=== PATIENT | female | born 1955 | race American Indian/Alaskan Native ===

== ENCOUNTER 2016-06-27 08:33 | Emergency (ER) | payer MEDICARE ==
[2016-06-27 08:45] VITALS: BP 140/96
[2016-06-27] MEDS ORDERED: TESSALON PERLES PO ONE (09:12)
[2016-06-27] MEDS ORDERED: DUONEB 0.5 MG-3 MG/3 ML SOLN IH ONE (09:12)
--- NOTE | 2016-06-27 09:20 | Emergency Department Report ---
ED General Adult HPI - General Chief complaint: Back Pain/Injury Stated complaint: Cough /BACK PAIN Time Seen by Provider: 06/27/16 09:00 Source: patient Mode of arrival: Ambulatory Limitations: No Limitations - History of Present Illness Initial comments: PT c/o c/c/c x 4-5 days, gradually worsening, with fevers and chills PT states she does not have asthma but she has heard herself wheezing. PT also states she is out of her oxycodone that her MD has her on for chronic low back pain and sciatica. PT states she needs her medication for her back pain MD Complaint: cough/ back pain -: Gradual, days(s) (4-5 days) Location: chest Severity scale (0 -10): 10 Quality: aching, constant Consistency: constant Improves with: medication (oxycodone ) Associated Symptoms: cough, fever/chills. denies: nausea/vomiting Treatments Prior to Arrival: Aspirin (0300 - helped break fever ) - Related Data Previous Rx's Medication Instructions Recorded Last Taken Type amLODIPine [Norvasc] 10 mg PO DAILY #30 tablet 11/10/14 Unknown Rx Cyclobenzaprine [Flexeril 10 MG 10 mg PO TID PRN #30 tablet 03/11/15 Unknown Rx TAB] Allergies Allergy/AdvReac Type Severity Reaction Status Date / Time cortisone [Cortisone] Allergy Seizure Verified 05/26/15 12:41 ED Review of Systems ROS: Stated complaint: SOB/BACK PAIN Other details as noted in HPI Comment: All other systems reviewed and negative Constitutional: chills, fever, malaise ENT: congestion Respiratory: cough, wheezing, other (pt states she hears rattling in her chest ) Cardiovascular: denies: palpitations, syncope Gastrointestinal: denies: vomiting Musculoskeletal: back pain ED Past Medical Hx - Past Medical History Previous Medical History?: Yes Hx Hypertension: Yes Hx Asthma: No Additional medical history: chronic BACK pain - Surgical History Past Surgical History?: Yes Additional Surgical History: tubal ligation - Family History Family history: lung disease (ASthma ) - Social History Smoking Status: Never Smoker Substance Use Type: Alcohol - Medications Home Medications: Home Medications Medication Instructions Recorded Confirmed Last Taken Type amLODIPine [Norvasc] 10 mg PO DAILY #30 tablet 11/10/14 Unknown Rx Cyclobenzaprine [Flexeril 10 MG 10 mg PO TID PRN #30 tablet 03/11/15 Unknown Rx TAB] ED Physical Exam - General Limitations: No Limitations General appearance: alert, in no apparent distress - Head Head exam: Present: atraumatic, normocephalic - Eye Eye exam: Present: normal appearance. Absent: conjunctival injection - ENT ENT exam: Present: mucous membranes moist, TM's normal bilaterally, normal external ear exam - Expanded ENT Exam Expanded Mouth exam: Present: normal external inspection. Absent: drooling, trismus Throat exam: Positive: other (clear post nasal drainage ). Negative: tonsillar erythema, tonsillomegaly, tonsillar exudate, R peritonsillar mass, L peritonsillar mass - Neck Neck exam: Present: normal inspection, full ROM. Absent: tenderness, lymphadenopathy - Respiratory Respiratory exam: Present: normal lung sounds bilaterally, other (dry cough during exam ). Absent: respiratory distress, wheezes, stridor, chest wall tenderness - Cardiovascular Cardiovascular Exam: Present: regular rate, normal rhythm, normal heart sounds - GI/Abdominal GI/Abdominal exam: Present: soft. Absent: tenderness - Extremities Exam Extremities exam: Present: normal inspection, full ROM - Back Exam Back exam: Present: normal inspection, full ROM, tenderness, paraspinal tenderness (juan lumbar spine ). Absent: CVA tenderness (R), CVA tenderness (L) , vertebral tenderness - Neurological Exam Neurological exam: Present: alert, oriented X3, normal gait - Psychiatric Psychiatric exam: Present: normal affect, normal mood - Skin Skin exam: Present: warm, dry, intact ED Course Vital Signs 06/27/16 06/27/16 06/27/16 08:43 09:30 09:40 Temperature 98.5 F Pulse Rate 99 H Pulse Rate [ 97 H 98 H Anterior Bilateral Throughout] Respiratory 18 Rate Respiratory 18 18 Rate [Anterior Bilateral Throughout] Blood Pressure 140/96 O2 Sat by Pulse 100 Oximetry - Reevaluation(s) Reevaluation #1: 06/27/16 09:25 PT aware of plan of care. No questions at this time. Reevaluation #2: 06/27/16 10:21 PT aware of XR results. PT states she will call her doctor tomorrow to see about oxycodone refill. PT states as of now, her next appointment is next month. PT states she still has Flexeril and Norvasc at home. PT states her cough decreased sp neb. - Pulse Oximetry Interpretation Digit-Finger Initial Pulse Oximetry Readin Actions Taken: none ED Medical Decision Making - Radiology Data Radiology results: report reviewed CXR- NAP - Differential Diagnosis chronic pain, bronchitis, pna Critical Care Time: No Critical care attestation.: If time is entered above; I have spent that time in minutes in the direct care of this critically ill patient, excluding procedure time. ED Disposition Clinical Impression: Viral URI with cough, Acute exacerbation of chronic low back pain Disposition: DISCHARGED TO HOME OR SELFCARE Is pt being admited?: No Does the pt Need Aspirin: No Condition: Stable Instructions: Chronic Back Pain (ED), Viral Syndrome (ED), Cold Symptoms (ED) Additional Instructions: Call your PCP in the morning No driving or ETOH with Tylenol #3 Time of Disposition: 10:25
--- NOTE | 2016-06-27 09:56 | XRay Report ---
ROUTINE CHEST, TWO VIEWS: HISTORY: Cough, fever. The trachea, heart, mediastinal contour, lung weiner and bony thorax are unremarkable. IMPRESSION: Unremarkable chest x-ray. No change since 11/09/14.
== END 2016-06-27 10:40 | disposition home or self-care (01) ==
LOC: ED 08:33
DX: J06.9 Acute upper respiratory infection, unspecified (principal); M54.5 Low back pain; G89.29 Other chronic pain; I10 Essential (primary) hypertension; Z98.51 Tubal ligation status
CPT/HCPCS: 71020; 94640

== ENCOUNTER 2016-12-10 17:35 | Emergency (ER) | payer MEDICARE ==
[2016-12-10] MEDS ORDERED: TYLENOL PO ONE (20:33)
[2016-12-10] MEDS ORDERED: MOTRIN PO ONE (20:34)
--- NOTE | 2016-12-10 21:47 | Emergency Department Report ---
ED General Adult HPI - General Chief complaint: Extremity Injury, Lower Stated complaint: LEFT LEG AND ANKLE Time Seen by Provider: 12/10/16 20:32 Source: patient Mode of arrival: Ambulatory Limitations: No Limitations - History of Present Illness Initial comments: Patient is a 61-year-old female who has a past medical history of hypertension and diabetes who presents with left ankle pain and swelling. She states that her symptoms have been going on for the last 3 days. Her pain as a 4 out of 10 as located in her ankle. Only occurs when she walks resting makes it better. It doesn't radiate anywhere and is an achy type of pain. She also noticed her ankle swells after she walks. When she props her ankle up with a pillow the swelling in her ankle goes down. Patient denies having any shortness of breath , any chest pain, calf swelling or having any fever. Severity scale (0 -10): 6 - Related Data Previous Rx's Medication Instructions Recorded Last Taken Type amLODIPine [Norvasc] 10 mg PO DAILY #30 tablet 11/10/14 Unknown Rx Cyclobenzaprine [Flexeril 10 MG 10 mg PO TID PRN #30 tablet 03/11/15 Unknown Rx TAB] Acetaminophen/Codeine [Tylenol #3] 1 tab PO Q6H PRN #12 tab 06/27/16 Unknown Rx Albuterol Sulfate [Ventolin HFA] 2 puff IH Q4H PRN #1 hfa.aer.ad 06/27/16 Unknown Rx Benzonatate [Tessalon Perles] 100 mg PO Q8HR PRN #12 capsule 06/27/16 Unknown Rx Ibuprofen [Motrin] 600 mg PO Q8H PRN #15 tablet 06/27/16 Unknown Rx guaiFENesin/DEXTROMETHORPHAN 1 each PO BID PRN #14 tbmp.12hr 06/27/16 Unknown Rx [Mucinex Dm ER 1,200-60 mg Tab] Allergies Allergy/AdvReac Type Severity Reaction Status Date / Time cortisone [Cortisone] Allergy Seizure Verified 12/10/16 17:40 ED Review of Systems ROS: Stated complaint: LEFT LEG AND ANKLE Other details as noted in HPI Constitutional: denies: chills, fever Eyes: denies: eye pain, eye discharge, vision change ENT: denies: ear pain, throat pain Respiratory: denies: cough, shortness of breath, wheezing Cardiovascular: denies: chest pain, palpitations Endocrine: no symptoms reported Gastrointestinal: denies: abdominal pain, nausea, diarrhea Genitourinary: denies: urgency, dysuria, discharge Musculoskeletal: as per HPI, joint swelling. denies: back pain, arthralgia Skin: denies: rash, lesions Neurological: denies: headache, weakness, paresthesias Psychiatric: denies: anxiety, depression Hematological/Lymphatic: denies: easy bleeding, easy bruising ED Past Medical Hx - Past Medical History Hx Hypertension: Yes Hx Arthritis: Yes Hx Asthma: No Additional medical history: chronic BACK pain - Surgical History Additional Surgical History: tubal ligation - Social History Smoking Status: Never Smoker Substance Use Type: None - Medications Home Medications: Home Medications Medication Instructions Recorded Confirmed Last Taken Type amLODIPine [Norvasc] 10 mg PO DAILY #30 tablet 11/10/14 Unknown Rx Cyclobenzaprine [Flexeril 10 MG 10 mg PO TID PRN #30 tablet 03/11/15 Unknown Rx TAB] Acetaminophen/Codeine [Tylenol #3] 1 tab PO Q6H PRN #12 tab 06/27/16 Unknown Rx Albuterol Sulfate [Ventolin HFA] 2 puff IH Q4H PRN #1 hfa.aer.ad 06/27/16 Unknown Rx Benzonatate [Tessalon Perles] 100 mg PO Q8HR PRN #12 capsule 06/27/16 Unknown Rx Ibuprofen [Motrin] 600 mg PO Q8H PRN #15 tablet 06/27/16 Unknown Rx guaiFENesin/DEXTROMETHORPHAN 1 each PO BID PRN #14 tbmp.12hr 06/27/16 Unknown Rx [Mucinex Dm ER 1,200-60 mg Tab] ED Physical Exam - General Limitations: No Limitations General appearance: alert, in no apparent distress - Head Head exam: Present: atraumatic, normocephalic - Eye Eye exam: Present: normal appearance - ENT ENT exam: Present: mucous membranes moist - Neck Neck exam: Present: normal inspection - Respiratory Respiratory exam: Present: normal lung sounds bilaterally. Absent: respiratory distress - Cardiovascular Cardiovascular Exam: Present: regular rate, normal rhythm. Absent: systolic murmur, diastolic murmur, rubs, gallop - GI/Abdominal GI/Abdominal exam: Present: soft, normal bowel sounds - Extremities Exam Extremities exam: Present: other (slight lateral ankle swelling tenderness +2 pedal pulses. Cap refill patient is neurovascularly intact). Absent: tenderness - Back Exam Back exam: Present: normal inspection - Neurological Exam Neurological exam: Present: alert, oriented X3 - Psychiatric Psychiatric exam: Present: normal affect, normal mood - Skin Skin exam: Present: warm, dry, intact, normal color. Absent: rash ED Course Vital Signs 12/10/16 12/10/16 12/10/16 17:40 20:51 22:35 Temperature 98.2 F 97.7 F Pulse Rate 91 H 80 Respiratory 18 18 16 Rate Blood Pressure 131/73 Blood Pressure 129/81 [Left] O2 Sat by Pulse 94 99 Oximetry ED Medical Decision Making - Radiology Data Radiology results: report reviewed, image reviewed Ankle x-ray: Shows moderate soft tissue swelling and plantar calcaneal spurring. - Medical Decision Making Chief medical diagnosis: Dependent edema Differential medical diagnosis: Ankle fracture, ankle sprain I will get an ankle x-ray and I will give patient oral analgesic pain medication. Patient states that her pain is better. X-ray shows moderate soft tissue swelling. Given patient's history of swelling going down when she props up her foot at night. It is highly unlikely that the infectious nature. Patient has no calf swelling or calf tenderness and it is highly unlikely that she has any SVT or DVT. Also patient home with follow-up instructions for compression stockings patient agrees with plan and return precautions were given to patient. Additional verbal discharge instructions were given. Critical care attestation.: If time is entered above; I have spent that time in minutes in the direct care of this critically ill patient, excluding procedure time. ED Disposition Clinical Impression: Dependent edema Left ankle pain Qualifiers: Chronicity: acute Qualified Code(s): M25.572 - Pain in left ankle and joints of left foot Disposition: DC-01 TO HOME OR SELFCARE Is pt being admited?: No Does the pt Need Aspirin: No Condition: Stable Instructions: Leg Edema (ED) Referrals: RHONDA VITALE DO [Primary Care Provider] - 3-5 Days
[2016-12-10 22:36] VITALS: BP 129/81
--- NOTE | 2016-12-10 22:41 | XRay Report ---
FINAL REPORT PROCEDURE: XR ANKLE 3+V LT TECHNIQUE: Three views left ankle HISTORY: left ankle pain COMPARISON: No prior studies are available for comparison. FINDINGS: Moderate soft tissue swelling. Plantar calcaneal spurring. No acute fracture seen at this time IMPRESSION: No acute fracture seen at this time
== END 2016-12-10 22:37 | disposition home or self-care (01) ==
LOC: ED 17:35
DX: R60.9 Edema, unspecified (principal); M25.572 Pain in left ankle and joints of left foot; I10 Essential (primary) hypertension

== ENCOUNTER 2020-04-28 16:19 | Emergency (ER) | payer MEDICARE ==
[2020-04-28 16:52] VITALS: BP 149/74
--- NOTE | 2020-04-28 16:53 | Emergency Department Report ---
ED Upper Extremity Inj HPI - General Chief Complaint: Extremity Injury, Upper Stated Complaint: PAIN RIGHT HAND Source: patient Mode of arrival: Ambulatory Limitations: No Limitations - History of Present Illness Initial Comments: Patient is a 64-year-old -[place]amese female with a history of chronic osteoarthritis, hypertension, obesity and chronic low back pain who presents to the ED with complaint of acute onset persistent right elbow and forearm pain for the last 2 weeks after heavy physical activity when exercising. Patient states that the pain was initially mild but in the last it started getting worse. Patient states that in the antecubital area of the right forearm and elbow the pain is worse with palpation and that there is a swollen mass in the area. Michael robert states that in the morning the area was more swollen with severe pain and warmth and that the pain is worse with any active range of motion especially extension of the right elbow and forearm. Patient also states that the pain radiates to the right upper arm especially with extension of the right arm. Patient denies fall, traumatic injury, chest pain, shortness of breath, neck pain, dizziness, heavy lifting, headache, numbness and tingling or weakness of right arm or back pain. MD Complaint: Injury to:: right, elbow, forearm -: Sudden, week(s) (2) Other Extremity Injury: Elbow: Right (Antecubital area pain) Handedness: right Place: home Severity scale (0 -10): 7 Improves With: rest Worsens With: movement of extremity Context: injury (hyperextension and movement) Associated Symptoms: denies other symptoms. denies: weakness, numbness, neck pain, suspects foreign body, nausea/vomiting, heard/felt popping sensat - Related Data Previous Rx's Medication Instructions Recorded Last Taken Type amLODIPine 10 mg PO DAILY #30 tablet 11/10/14 Unknown Rx Cyclobenzaprine [Flexeril 10 MG 10 mg PO TID PRN #30 tablet 03/11/15 Unknown Rx TAB] Acetaminophen/Codeine [Tylenol #3] 1 tab PO Q6H PRN #12 tab 06/27/16 Unknown Rx Albuterol Sulfate [Ventolin HFA] 2 puff IH Q4H PRN #1 hfa.aer.ad 06/27/16 Unknown Rx Benzonatate [Tessalon Perles] 100 mg PO Q8HR PRN #12 capsule 06/27/16 Unknown Rx Ibuprofen [Motrin] 600 mg PO Q8H PRN #15 tablet 06/27/16 Unknown Rx guaiFENesin/DEXTROMETHORPHAN 1 each PO BID PRN #14 tbmp.12hr 06/27/16 Unknown Rx [Mucinex Dm ER 1,200-60 mg Tab] Baclofen 20 mg PO Q12H PRN #24 tablet 04/28/20 Unknown Rx Naproxen 500 mg PO Q12H PRN #30 tablet 04/28/20 Unknown Rx Allergies Allergy/AdvReac Type Severity Reaction Status Date / Time cortisone [Cortisone] Allergy Seizure Verified 12/10/16 17:40 ED Review of Systems ROS: Stated complaint: PAIN RIGHT HAND Other details as noted in HPI Constitutional: denies: chills, fever Eyes: denies: eye pain, eye discharge, vision change ENT: denies: ear pain, throat pain Respiratory: denies: cough, shortness of breath, wheezing Cardiovascular: denies: chest pain, palpitations Endocrine: no symptoms reported Gastrointestinal: denies: abdominal pain, nausea, diarrhea Genitourinary: denies: urgency, dysuria, discharge Musculoskeletal: arthralgia (right elbow and forearm pain). denies: back pain, joint swelling Skin: denies: rash, lesions Neurological: denies: headache, weakness, paresthesias Psychiatric: denies: anxiety, depression Hematological/Lymphatic: denies: easy bleeding, easy bruising ED Past Medical Hx - Past Medical History Previous Medical History?: Yes Hx Hypertension: Yes Hx Arthritis: Yes Hx Asthma: No Additional medical history: chronic BACK pain - Surgical History Past Surgical History?: Yes Additional Surgical History: tubal ligation - Social History Smoking Status: Never Smoker Substance Use Type: None - Medications Home Medications: Home Medications Medication Instructions Recorded Confirmed Last Taken Type amLODIPine 10 mg PO DAILY #30 tablet 11/10/14 Unknown Rx Cyclobenzaprine [Flexeril 10 MG 10 mg PO TID PRN #30 tablet 03/11/15 Unknown Rx TAB] Acetaminophen/Codeine [Tylenol #3] 1 tab PO Q6H PRN #12 tab 06/27/16 Unknown Rx Albuterol Sulfate [Ventolin HFA] 2 puff IH Q4H PRN #1 hfa.aer.ad 06/27/16 Unknown Rx Benzonatate [Tessalon Perles] 100 mg PO Q8HR PRN #12 capsule 06/27/16 Unknown Rx Ibuprofen [Motrin] 600 mg PO Q8H PRN #15 tablet 06/27/16 Unknown Rx guaiFENesin/DEXTROMETHORPHAN 1 each PO BID PRN #14 tbmp.12hr 06/27/16 Unknown Rx [Mucinex Dm ER 1,200-60 mg Tab] Baclofen 20 mg PO Q12H PRN #24 tablet 04/28/20 Unknown Rx Naproxen 500 mg PO Q12H PRN #30 tablet 04/28/20 Unknown Rx ED Physical Exam - General Limitations: No Limitations General appearance: alert, in no apparent distress - Head Head exam: Present: atraumatic, normocephalic, normal inspection - Eye Eye exam: Present: normal appearance, PERRL, EOMI Pupils: Present: normal accommodation - ENT ENT exam: Present: normal exam, normal orophraynx, mucous membranes moist, TM's normal bilaterally, normal external ear exam - Neck Neck exam: Present: normal inspection, full ROM - Respiratory Respiratory exam: Present: normal lung sounds bilaterally. Absent: respiratory distress, wheezes, rales, rhonchi, chest wall tenderness, accessory muscle use, decreased breath sounds - Cardiovascular Cardiovascular Exam: Present: regular rate, normal rhythm, normal heart sounds. Absent: systolic murmur, diastolic murmur, rubs, gallop - GI/Abdominal GI/Abdominal exam: Present: soft, normal bowel sounds. Absent: distended, tenderness, guarding, rebound, hyperactive bowel sounds, hypoactive bowel sounds, organomegaly, mass, bruit - Extremities Exam Extremities exam: Present: normal inspection, full ROM, tenderness (Palpable right elbow tenderness, worse on the antecubital area), normal capillary refill. Absent: pedal edema, joint swelling, calf tenderness - Back Exam Back exam: Present: normal inspection, full ROM. Absent: tenderness, CVA tenderness (R), muscle spasm - Neurological Exam Neurological exam: Present: alert, oriented X3, CN II-XII intact, normal gait, reflexes normal - Psychiatric Psychiatric exam: Present: normal affect, normal mood - Skin Skin exam: Present: warm, dry, intact, normal color. Absent: rash ED Course Vital Signs 04/28/20 16:41 Temperature 98.8 F Pulse Rate 61 Respiratory 20 Rate Blood Pressure 149/74 O2 Sat by Pulse 99 Oximetry ED Medical Decision Making - EKG Data Rate: bradycardia - Radiology Data Findings [facility] [address] [place] [address] Vascular Lab Report Signed Patient: CHILO AMARO MR#: [id number] : 1955 Acct:[id number] Age/Sex: 64 / F ADM Date: 04/28/20 Loc: ED Attending Dr: Ordering Physician: MICHAEL ROSE Date of Service: 04/28/20 Procedure(s): VL venous duplex UE RT Accession Number(s): [id number] cc: MICHAEL ROSE DUPLEX DOPPLER UPPER EXTREMITY VENOUS, RIGHT INDICATION / CLINICAL INFORMATION: Right upper arm pain. TECHNIQUE: Duplex doppler imaging was performed through the veins of the right upper extremity using venous compression and other maneuvers. COMPARISON: None available. FINDINGS: RIGHT INTERNAL JUGULAR VEIN: Negative. RIGHT SUBCLAVIAN VEIN: Negative. RIGHT AXILLARY VEIN: Negative. RIGHT BRACHIAL VEIN: Negative. RIGHT FOREARM VEINS: Negative. RIGHT BASILIC VEIN (SUPERFICIAL): Negative. ADDITIONAL FINDINGS: None. IMPRESSION: 1. No sonographic evidence for DVT. Signer Name: Brendan Bajwa MD Signed: 04/28/2020 5:46 PM Workstation Name: [id number] Transcribed By: ARLINE Dictated By: Brendan Bajwa MD Electronically Authenticated By: Brendan Bajwa MD Signed Date/Time: 04/28/201745 DD/ 45 TD/TT: - Medical Decision Making This is a 64-year-old -[place]inamese female with a history of chronic o steoarthritis, hypertension, obesity and chronic low back pain who presents to the ED with complaint of acute onset persistent right elbow and forearm pain for the last 2 weeks after heavy physical activity when exercising. Patient states that the pain was initially mild but in the last it started getting worse. Patient states that in the antecubital area of the right forearm and elbow the pain is worse with palpation and that there is a swollen mass in the area. Patient states that in the morning the area was more swollen with severe pain and warmth and that the pain is worse with any active range of motion especially extension of the right elbow and forearm. Patient also states that the pain radiates to the right upper arm especially with extension of the right arm. In the ED, patient is alert and oriented x3 and is not in distress, vital signs are stable. Patient however appears to be in pain especially on physical exam. Patient was therefore treated for pain in the ED and the right arm Doppler ultrasound was performed which was negative for any sonographic evidence of DVT. On reevaluation, patient's pain is well controlled with medications. Patient was discharged home on pain medication prescriptions and was advised to follow- up with her primary care physician in 7 to 10 days for reevaluation. Patient was advised return to the ED immediately if her symptoms get worse. Patient verbalized understanding of the discharge plans and the post discharge care as well as return precautions. - Differential Diagnosis Muscle strain; Tendonitis; Osteoarthritis; Muscle spasm; DVT Critical care attestation.: If time is entered above; I have spent that time in minutes in the direct care of this critically ill patient, excluding procedure time. ED Disposition Clinical Impression: Right elbow tendinitis Osteoarthritis of right elbow Qualifiers: Osteoarthritis type: primary Qualified Code(s): M19.021 - Primary osteoarthritis, right elbow Disposition: DC-01 TO HOME OR SELFCARE Is pt being admited?: No Does the pt Need Aspirin: No Condition: Stable Instructions: Tennis Elbow, [id number], Preventing Osteoarthritis, Adult, Arthritis, [id number], Tendinitis, [id number] Additional Instructions: The Doppler ultrasound of your right arm showed showed no evidence of blood clot or DVT. Take medication with food, drink plenty of fluids and follow-up with your primary care physician in 5 to 7 days for reevaluation. Return to the ED immediately if symptoms get worse. Prescriptions: Baclofen 20 mg PO Q12H PRN #24 tablet PRN Reason: Muscle strain Naproxen 500 mg PO Q12H PRN #30 tablet PRN Reason: Pain , Severe (7-10) Referrals: [facility] [Provider Group] - 3-5 Days Time of Disposition: 16:57 Print Language: GAMBIAN
--- NOTE | 2020-04-28 17:51 | Vascular Lab Report ---
DUPLEX DOPPLER UPPER EXTREMITY VENOUS, RIGHT INDICATION / CLINICAL INFORMATION: Right upper arm pain. TECHNIQUE: Duplex doppler imaging was performed through the veins of the right upper extremity using venous comp ression and other maneuvers. COMPARISON: None available. FINDINGS: RIGHT INTERNAL JUGULAR VEIN: Negative. RIGHT SUBCLAVIAN VEIN: Negative. RIGHT AXILLARY VEIN: Negative. RIGHT BRACHIAL VEIN: Negative. RIGHT FOREARM VEINS: Negative. RIGHT BASILIC VEIN (SUPERFICIAL): Negative. ADDITIONAL FINDINGS: None. IMPRESSION: 1. No sonographic evidence for DVT. Signer Name: Brendan Bajwa MD Signed: 04/28/2020 5:46 PM Workstation Name: [id number]
== END 2020-04-28 18:49 | disposition home or self-care (01) ==
LOC: ED 16:19
DX: M19.021 Primary osteoarthritis, right elbow (principal); M77.8 Other enthesopathies, not elsewhere classified; I10 Essential (primary) hypertension; M19.91 Primary osteoarthritis, unspecified site; Z98.51 Tubal ligation status; Z79.1 Long term (current) use of non-steroidal anti-inflammatories (NSAID); Z79.899 Other long term (current) drug therapy; Z88.8 Allergy status to other drugs, medicaments and biological substances

== ENCOUNTER 2020-07-26 08:51 | Emergency (ER) | payer MEDICARE ==
--- NOTE | 2020-07-26 09:11 | Event Note ---
ED Screening Note Date of service: 07/26/20 Time: 09:08 ED Screening Note: Zuleyma 64-year-old female presents to the ED with right-sided neck chest shoulder pain radiating down her hands x3 days Past medical history positive for hypertension Tenderness to palpation of the right sided neck, chest This initial assessment/diagnostic orders/clinical plan/treatment(s) is/are subject to change based on patients health status, clinical progression and re- assessment by fellow clinical providers in the ED. Further treatment and workup at subsequent clinical providers discretion. Patient/guardian urged not to elope from the ED as their condition may be serious if not clinically assessed and man aged. Initial orders include: Labs. Chest x-ray, EKG
--- NOTE | 2020-07-26 09:42 | XRay Report ---
CHEST 2 VIEWS INDICATION / CLINICAL INFORMATION: Chest pain. COMPARISON: 06/27/2016 FINDINGS: SUPPORT DEVICES: None. HEART / MEDIASTINUM: No significant abnormality. LUNGS / PLEURA: No significant pulmonary or pleural abnormality. No pneumothorax. ADDITIONAL FINDINGS: No significant additional findings. IMPRESSION: 1. No acute findings. Signer Name: Brendan Bajwa MD Signed: 07/26/2020 9:37 AM Workstation Name: [id number]
[2020-07-26 10:04] LABS: Basophils # (Auto) 0.1 K/mm3 (0.0-0.1); Basophils % (Auto) 0.6 % (0.0-1.8); Eosinophils # (Auto) 0.1 K/mm3 (0.0-0.4); Eosinophils % (Auto) 1.2 % (0.0-4.3); Lymphocytes # (Auto) 2.9 K/mm3 (1.2-5.4); Lymphocytes % (Auto) 29.6 % (13.4-35.0); Mean Corpuscular HGB Conc 30 % (30-34); Mean Corpuscular Volume 75 fl (79-97); Monocytes # (Auto) 0.5 K/mm3 (0.0-0.8); Monocytes % (Auto) 4.9 % (0.0-7.3); Platelet Count 323 K/mm3 (140-440); Red Blood Count 5.38 M/mm3 (3.65-5.03); Red Cell Distribution Width 14.6 % (13.2-15.2)
[2020-07-26 10:11] LABS: Hemoglobin 12.3 gm/dl (10.1-14.3)
[2020-07-26 10:12] LABS: Hematocrit 40.6 % (30.3-42.9)
[2020-07-26 10:27] LABS: BUN/Creatinine Ratio 21; Blood Urea Nitrogen 17 mg/dL (7-17); Calcium 9.1 mg/dL (8.4-10.2); Hemolysis Index 7
[2020-07-26] MEDS ORDERED: CYCLOBENZAPRINE 10 MG TAB PO ONE (12:17)
[2020-07-26] MEDS ORDERED: KETOROLAC 30 MG/1 ML INJ IM ONE (12:17)
--- NOTE | 2020-07-26 12:21 | Emergency Department Report ---
ED Chest Pain HPI - General Chief Complaint: Chest Pain Stated Complaint: CHEST PAIN Time Seen by Provider: 07/26/20 12:11 Source: patient Mode of arrival: Ambulatory Limitations: No Limitations - History of Present Illness Initial Comments: This is a 64-year-old female presents to the emergency department with a complaint of a squeezing and cramping pain going down her right arm and up into the shoulder and neck. Sometimes she also feels like it is radiating to or from the right side of her chest. No known aggravating or alleviating factors. How ever, the pain seems to be either more intense at night, or has kept her from getting sleep over the past 2 nights. She has a past medical history of hypertension and sciatica. She says she has been compliant with her medications but otherwise has not taken anything for her symptoms prior to presentation today. No recent travel or sick contacts at home. She denies any skin color change, swelling, rash, lesions, localized weakness, fever, shortness of breath. - Related Data Previous Rx's Medication Instructions Recorded Last Taken Type amLODIPine 10 mg PO DAILY #30 tablet 11/10/14 Unknown Rx Acetaminophen/Codeine [Tylenol #3] 1 tab PO Q6H PRN #12 tab 06/27/16 Unknown Rx Albuterol Sulfate [Ventolin HFA] 2 puff IH Q4H PRN #1 hfa.aer.ad 06/27/16 Unknown Rx Benzonatate [Tessalon Perles] 100 mg PO Q8HR PRN #12 capsule 06/27/16 Unknown Rx guaiFENesin/DEXTROMETHORPHAN 1 each PO BID PRN #14 tbmp.12hr 06/27/16 Unknown Rx [Mucinex Dm ER 1,200-60 mg Tab] Baclofen 20 mg PO Q12H PRN #24 tablet 04/28/20 Unknown Rx Naproxen 500 mg PO Q12H PRN #30 tablet 04/28/20 Unknown Rx Cyclobenzaprine [Flexeril 10 MG 10 mg PO TID PRN #12 tablet 07/26/20 Unknown Rx TAB] Ibuprofen [Motrin 600 MG tab] 600 mg PO Q8H PRN #20 tablet 07/26/20 Unknown Rx Allergies Allergy/AdvReac Type Severity Reaction Status Date / Time cortisone [Cortisone] Allergy Seizure Verified 09/22/17 17:40 Heart Score - HEART Score History: Slightly suspicious EKG: Non-specific Age: 45-65 Risk factors: 1-2 risk factors Troponin: < normal limit HEART Score: 3 - EKG Read Time Time EKG Completed: 08:59 EKG Read Time: 09:04 - Critical Actions Critical Actions: 0-3 pts:0.9-1.7%risk of adverse cardiac event.Candidate for discharge ED Review of Systems ROS: Stated complaint: CHEST PAIN Other details as noted in HPI Comment: All other systems reviewed and negative Constitutional: denies: chills, fever Eyes: denies: eye pain, vision change ENT: denies: ear pain, throat pain Respiratory: denies: cough, shortness of breath Cardiovascular: chest pain. denies: palpitations, edema Gastrointestinal: denies: abdominal pain, vomiting Genitourinary: denies: dysuria, discharge Musculoskeletal: arthralgia, myalgia. denies: joint swelling Skin: denies: rash, lesions Neurological: denies: headache, numbness, paresthesias ED Past Medical Hx - Past Medical History Previous Medical History?: Yes Hx Hypertension: Yes Hx Arthritis: Yes Hx Asthma: No Additional medical history: chronic BACK pain - Surgical History Past Surgical History?: Yes Additional Surgical History: tubal ligation - Social History Smoking Status: Never Smoker Substance Use Type: None - Medications Home Medications: Home Medications Medication Instructions Recorded Confirmed Last Taken Type amLODIPine 10 mg PO DAILY #30 tablet 11/10/14 Unknown Rx Acetaminophen/Codeine [Tylenol #3] 1 tab PO Q6H PRN #12 tab 06/27/16 Unknown Rx Albuterol Sulfate [Ventolin HFA] 2 puff IH Q4H PRN #1 hfa.aer.ad 06/27/16 Unknown Rx Benzonatate [Tessalon Perles] 100 mg PO Q8HR PRN #12 capsule 06/27/16 Unknown Rx guaiFENesin/DEXTROMETHORPHAN 1 each PO BID PRN #14 tbmp.12hr 06/27/16 Unknown Rx [Mucinex Dm ER 1,200-60 mg Tab] Baclofen 20 mg PO Q12H PRN #24 tablet 04/28/20 Unknown Rx Naproxen 500 mg PO Q12H PRN #30 tablet 04/28/20 Unknown Rx Cyclobenzaprine [Flexeril 10 MG 10 mg PO TID PRN #12 tablet 07/26/20 Unknown Rx TAB] Ibuprofen [Motrin 600 MG tab] 600 mg PO Q8H PRN #20 tablet 07/26/20 Unknown Rx ED Physical Exam - General Limitations: No Limitations - Other Other exam information: GENERAL: The patient is well-developed well-nourished. HENT: Normocephalic. Atraumatic. Patient has moist mucous membranes. EYES: Extraocular motions are intact. NECK: Supple. Trachea is midline. CHEST/LUNGS: Clear to auscultation. There is no respiratory distress noted. HEART/CARDIOVASCULAR: Regular. There is no tachycardia. There is no murmur. ABDOMEN: Abdomen is soft, nontender. Patient has normal bowel sounds. There is no abdominal distention. SKIN: Skin is warm and dry. NEURO: The patient is awake, alert, and oriented. The patient is cooperative. The patient has no focal neurologic deficits. Normal speech. MUSCULOSKELETAL: There is some reproducible tenderness to palpation along the right upper extremity. No obvious deformity. No restriction to range of motion. Radial pulse +2/4 and capillary refill less than 2 seconds to the affected right upper extremity. Supervisor Cartography strength 5 out of 5. ED Course Vital Signs 07/26/20 07/26/20 07/26/20 08:57 12:30 13:00 Temperature 98.5 F Pulse Rate 87 Respiratory 16 Rate Blood Pressure 196/94 171/78 171/76 O2 Sat by Pulse 100 98 97 Oximetry 07/26/20 07/26/20 13:30 14:00 Temperature Pulse Rate Respiratory Rate Blood Pressure 152/68 175/74 O2 Sat by Pulse 98 99 Oximetry MIKE score - Mike Score Age > 65: (0) No Aspirin use within the Past 7 Days: (0) No 3 or more CAD Risk Factors: (0) No 2 or more Angina events in past 24 hrs: (0) No Known CAD with more than 50% Stenosis: (0) No Elevated Cardiac Markers: (0) No ST Deviation Greater than 0.5mm: (0) No MIKE Score: 0 ED Medical Decision Making - Lab Data Result diagrams: 07/26/20 09:29 07/26/20 09:29 Lab Results 07/26/20 07/26/20 07/26/20 Range/Units 09:29 09:29 09:29 WBC 9.8 (4.5-11.0) K/mm3 RBC 5.38 H (3.65-5.03) M/mm3 Hgb 12.3 (10.1-14.3) gm/dl Hct 40.6 (30.3-42.9) % MCV 75 L (79-97) fl MCH 23 L (28-32) pg MCHC 30 (30-34) % RDW 14.6 (13.2-15.2) % Plt Count 323 (140-440) K/mm3 Lymph % (Auto) 29.6 (13.4-35.0) % [place] % (Auto) 4.9 (0.0-7.3) % Eos % (Auto) 1.2 (0.0-4.3) % Baso % (Auto) 0.6 (0.0-1.8) % Lymph # (Auto) 2.9 (1.2-5.4) K/mm3 [place] # (Auto) 0.5 (0.0-0.8) K/mm3 Eos # (Auto) 0.1 (0.0-0.4) K/mm3 Baso # (Auto) 0.1 (0.0-0.1) K/mm3 Seg Neutrophils % 63.7 (40.0-70.0) % Seg Neutrophils # 6.3 (1.8-7.7) K/mm3 Sodium 142 (137-145) mmol/L Potassium 4.2 (3.6-5.0) mmol/L Chloride 102.6 (98-107) mmol/L Carbon Dioxide 26 (22-30) mmol/L Anion Gap 18 mmol/L BUN 17 (7-17) mg/dL Creatinine 0.8 (0.6-1.2) mg/dL Estimated GFR > 60 ml/min BUN/Creatinine Ratio 21 % Glucose 94 (65-100) mg/dL Calcium 9.1 (8.4-10.2) mg/dL Magnesium 1.80 (1.7-2.3) mg/dL Troponin T < 0.010 (0.00-0.029) ng/mL - EKG Data -: EKG Interpreted by [facility] EKG shows normal: sinus rhythm, axis, intervals, QRS complexes (Left bundle branch block), ST-T waves Rate: normal - EKG Data When compared to previous EKG there are: no significant change Interpretation: unchanged when compared t (2015) - Radiology Data Radiology results: image reviewed interpreted by me: Chest x-ray does not show any acute process. There are no pleural effusions, obvious pneumonia and there is no pneumothorax. No significant cardiomegaly. - Medical Decision Making This patient presents to the emergency department with the complaint of right arm squeezing and cramping pain that sometimes radiates to the right side of her chest, as well as up to the right shoulder and neck. During my examination the main area of discomfort was the right upper extremity. She appears neuro vascularly intact with radial pulse +2/4, capillary refill less than 2 seconds, and full range of motion and full muscle strength. EKG did not have any morphology consistent with ST elevation myocardial infarction. Chest x-ray did not show any pneumonia, pleural effusions, pneumothorax, or any other acute process. The patient's labs have been unremarkable including CBC, metabolic panel, negative troponin. She was given a shot of Toradol and a muscle relaxer. She was reevaluated multiple times over multiple hours and is feeling improved. Patient does have very taut musculature to the right trapezius muscle and paraspinal neck muscles. The chest pain appears atypical for ACS. The arm pain appears more consistent with a muscle spasm or possibly some neuropathy or cervical radiculopathy. She does not appear to have any life or limb threatening emergency that requires admission. She will be discharged home with anti-inflammatories and muscle relaxers. She has been given a referral for orthopedics. Even though her chest pain is atypical for ACS, and even with a low heart and MIKE score, her contact information has been sent over to the [facility], and someone from their office should be contacting her shortly for close outpatient follow-up as per our hospitals low risk chest pain protocol. She will return to the emergency department with any worsening of her symptoms or with any acute distress. Critical Care Time: No Critical care attestation.: If time is entered above; I have spent that time in minutes in the direct care of this critically ill patient, excluding procedure time. ED Disposition Clinical Impression: Atypical chest pain, Right arm pain Hypertension Qualifiers: Hypertension type: essential hypertension Qualified Code(s): I10 - Essential (primary) hypertension Disposition: TO HOME OR SELFCARE Is pt being admited?: No Condition: Stable Instructions: Nonspecific Chest Pain, Adult, Musculoskeletal Pain, Hypertension, Adult, Hypertension (ED) Additional Instructions: Please follow-up with your primary care physician in the next few days. I am giving you a referral for a local orthopedic group, [facility], to follow-up regarding your right arm, shoulder and neck pains. Take your blood pressure medication as prescribed. Try to stay away from foods that are high in salt and caffeinated products. Keep a blood pressure log. You have been prescribed a medication that is sedating and therefore should not be taken prior to driving, working, and responsible for children and in no way should be mixed with alcohol of any quantity. Return to the emergency department with any worsening of your symptoms, new or concerning symptoms not addressed during this current emergency department visit, or with any acute distress. Prescriptions: Cyclobenzaprine [Flexeril 10 MG TAB] 10 mg PO TID PRN #12 tablet PRN Reason: Muscle Spasm Ibuprofen [Motrin 600 MG tab] 600 mg PO Q8H PRN #20 tablet PRN Reason: Pain Referrals: RHONDA VITALE DO [Primary Care Provider] - 3-5 Days [facility] [Provider Group] - 3-5 Days Time of Disposition: 13:29
[2020-07-26 14:11] VITALS: BP 175/74
--- NOTE | 2020-07-28 11:11 | Electrocardiograph Report ---
[facility] Test Date: 2020-07-26 Test Time: 08:59:42 Pat Name: CHILO AMARO Department: Room: Gender: F Adoption Worker: [employer] : 1955 Requested By: WEN MOLINA Order Number: [id number] Reading MD: Rob Soto Measurements Intervals Jessie Rate: 82 P: 47 OR: 172 QRS: -24 QRSD: 127 T: 79 QT: 420 QTc: 491 Interpretive Statements Sinus rhythm Left bundle branch block No previous ECG available for comparison Electronically Signed On 07-28-2020 11:11:26 EDT by Rob Soto
== END 2020-07-26 14:12 | disposition home or self-care (01) ==
LOC: ED 08:51
DX: R07.89 Other chest pain (principal); M79.601 Pain in right arm; I10 Essential (primary) hypertension; M19.91 Primary osteoarthritis, unspecified site; Z98.51 Tubal ligation status; Z79.1 Long term (current) use of non-steroidal anti-inflammatories (NSAID); Z79.899 Other long term (current) drug therapy; Z88.8 Allergy status to other drugs, medicaments and biological substances
CPT/HCPCS: 36415; 71046; 80048; 83735; 84484; 85025; 93005; 96372; 99284; J1885